=== PATIENT | male | born 1965 | race Caucasian/White ===

== ENCOUNTER 2018-06-12 12:32 | Day surgery (SDC) | payer OTHER ==
[~2018-06-12] VITALS: Ht 172.7 cm; Wt 72.8 kg
[2018-06-12 13:51] VITALS: Ht 172.7 cm; Wt 72.8 kg
--- NOTE | 2018-06-12 13:56 | PREAC ---
Date/Time of Note Date/Time of Note DATE: 06/12/18 TIME: 13:53 Anesthesia Eval and Record Evaluation Time Pre-Procedure Interview DATE: 06/12/18 TIME: 13:53 Age 53 Sex male NPO: 8 hrs Preoperative diagnosis colon cancer screening Planned procedure colonoscopy Past Medical History Past Medical History: None Surgery & Anesthesia Issues No known issue Meds Anticoagulation: No Beta Delmer within 24 hr: No Reason Beta Delmer not given: Pt. not on B-Delmer Reported Medications [None] No Conflict Check 06/12/18 Meds reviewed: Yes Allergies Allergies Reviewed: Yes Labs/Studies Labs Reviewed: Reviewed by anesthesiologist test: N/A Pre-procedure Exam Airway: Adequate mouth opening Mallampati: Mallampati II Teeth: Normal Lung: Normal Heart: Normal ASA Physical Status ASA physical status: 1 Emergency: None Planned Anesthetic General/MAC: MAC Pre-operative Attestations Prior to commencing anesthesia and surgery, the patient was re-evaluated, there was verification of: *The patient's identity *The results of appropriate recent lab work and preoperative vital signs *The above evaluation not changing prior to induction *Anesthetic plan, risk benefits, alternative and complications discussed with patient/family; questions answered; patient/family understands, accepts and wishes to proceed. LAMBERT COATS Jun 12, 2018 13:56
[2018-06-12 14:01] VITALS: BP 110/66; PULSE 78
[2018-06-12] MEDS ORDERED: PROPOFOL 20 ML ONE (16:46)
[2018-06-12] MEDS ORDERED: LIDOCAINE 2% (SDV) 5 ML INJ ONE (16:46)
[2018-06-12] MEDS ORDERED: MIDAZOLAM 1 MG/ML 2 ML INJ ONE (16:46)
--- NOTE | 2018-06-12 17:15 | PAC ---
Date/Time of Note Date/Time of Note DATE: 06/12/18 TIME: 17:15 Post-Anesthesia Notes Post-Anesthesia Note Last documented vital signs Vital Signs Date Temp Pulse Resp B/P (MAP) Pulse Ox O2 O2 Flow FiO2 Time Delivery Rate 06/12/18 99 81 19 119/62 99 Room Air 1700 Activity: WNL Respiratory function: WNL Cardiovascular function: WNL Mental status: Baseline Pain reasonably controlled: Yes Hydration appropriate: Yes Nausea/Vomiting absent: Yes MARGAUX BRYANT DO Jun 12, 2018 17:15
[2018-06-12 17:47] VITALS: BP 114/65
== END 2018-06-12 17:32 | disposition home or self-care (01) ==
LOC: GIL 12:32
PROVIDERS: ATTEND Internal Medicine Gastroenterology
DX: Z12.11 Encounter for screening for malignant neoplasm of colon (principal); K64.8 Other hemorrhoids
CPT/HCPCS: 45378; J2250